=== PATIENT | male | born 1930 | race African-American/Black ===

== ENCOUNTER 2017-02-09 22:29 | Inpatient (IN) | payer MEDICARE, OTHER ==
[~2017-02-09] VITALS: Ht 170.2 cm; Wt 79.8 kg
[2017-02-09] MEDS ORDERED: ONDANSETRON HCL 4MG/2ML VIAL IV STA (23:02)
[2017-02-09] MEDS ORDERED: METHYLPREDNISOLONE SOD SUCC 125 MG/2 ML VIAL IV STA (23:02)
[2017-02-09] MEDS ORDERED: MORPHINE SULFATE 4 MG/ML CPJ (NOT FOR IM USE) IV STA (23:02)
[2017-02-09] MEDS ORDERED: FUROSEMIDE 40MG/4ML VIAL IV STA (23:02)
[2017-02-09] MEDS ORDERED: ASPIRIN 81MG TABLET PO STA (23:02)
[2017-02-09] MEDS ORDERED: PIPERACILLIN/TAZ 3.375G PREMIX 50 ML IV ONE (23:15)
[2017-02-09] MEDS ORDERED: IPRATROPIUM/ALBUTEROL 0.5-3(2.5)MG/3ML NEB HHN ONE (23:15)
[2017-02-09 23:30] LABS: HEMATOCRIT. 29.9 % (42.0-52.0); HEMOGLOBIN. 9.6 g/dL (14.0-18.0); MEAN CORPUSCULAR HEMOGLOBIN 26.2 pg (28.0-32.0); MEAN CORPUSCULAR VOLUME 81.3 fL (80.0-94.0); MEAN PLATELET VOLUME 9.6 fl (7.4-10.4); PLATELET 200 x1000/uL (130-400); RED BLOOD CELL COUNT 3.68 mill/uL (4.7-6.1); RED CELL DISTRIBUTION WIDTH 17.2 % (11.6-14.6)
[2017-02-09 23:31] LABS: INR 1.4; PARTIAL THROMBOPLASTIN TIME 29.4 sec (24.0-34.0); PROTHROMBIN TIME 15.1 sec
[2017-02-09 23:34] LABS: BG BASE EXCESS -2.7 mmol/L (-2.0-2.0); BG CARBOXYHEMOGLOBIN 0.3 % (0.5-1.5); BG DEOXYHEMOGLOBIN 2.1 % (0.0-5.0); BG FRACTION INSPIRED OXYGEN 28; BG HCO3 ACT 20.6 mmol/L (22.0-26.0); BG METHEMOGLOBIN 0.2 % (0.0-1.5); BG OXYGEN SATURATION 97.9 % (92.0-98.5); BG OXYHEMOGLOBIN 97.4 % (94.0-97.0); BG PCO2 30.8 mmHg (35.0-45.0); BG PH 7.444 (7.350-7.450); BG PO2 112.8 mmHg (75.0-100.0); BG SAMPLE SITE RIGHT RADIAL; BG TOTAL HEMOGLOBIN 10.2 g/dL (12.0-18.0); BG VENT MODE NASAL CANNULA
[2017-02-09 23:40] LABS: CARBON DIOXIDE 24 mEq/L (21-32); CHLORIDE 104 mEq/L (98-107); CREATINE KINASE 43 IU/L (39-308); TROPONIN I 0.02 ng/mL (0.00-0.04)
[2017-02-10] VITALS (10 sets, daily range): BP systolic 96–123; BP diastolic 49–79
[2017-02-10] MEDS ORDERED: SODIUM POLYSTYRENE SULFONATE 15 G/60 ML BOT PO ONE (00:15)
[2017-02-10] MEDS ORDERED: SODIUM BICARBONATE 8.4% 1 MEQ/ML 50ML SYR IV ONE (00:15)
[2017-02-10] MEDS ORDERED: CALCIUM CHLORIDE 1GM/10ML SYR IV ONE (00:15)
[2017-02-10 03:25] LABS: PLATELET ESTIMATE NORMAL
[2017-02-10] MEDS ORDERED: ATOR20TA65 PO (08:16)
[2017-02-10] MEDS ORDERED: ASPI-1035 PO (08:16)
[2017-02-10] MEDS ORDERED: PROM6.25 PO (08:24)
[2017-02-10] MEDS ORDERED: CARV3.1242 PO (08:24)
[2017-02-10] MEDS ORDERED: FAMO40TA7 PO (08:24)
[2017-02-10] MEDS ORDERED: FURO40TA5 PO (08:24)
[2017-02-10] MEDS ORDERED: DOCU-150 PO (08:24)
[2017-02-10] MEDS ORDERED: ACET-3161 PO (08:24)
[2017-02-10] MEDS ORDERED: DEXTROSE 50% WATER 50ML SYRINGE IV PRN (08:30)
[2017-02-10] MEDS ORDERED: ASPIRIN 81MG TABLET PO SCH (08:30)
[2017-02-10] MEDS: DOCUSATE SODIUM 250MG CAPSULE PO SCH ×2 (08:58→20:27)
[2017-02-10] MEDS: FUROSEMIDE 40MG/4ML VIAL IVP SCH (08:59)
[2017-02-10] MEDS: CARVEDILOL 3.125 MG TABLET PO SCH ×3 (09:00→17:53)
[2017-02-10] MEDS ORDERED: CEFTRIAXONE 1 G PREMIX 50 ML IV SCH (10:00)
[2017-02-10 10:56] LABS: BASOPHILS % 0.7 % (0.0-2.0); EOSINOPHILS % 0.1 % (0.0-5.0); HEMATOCRIT. 28.8 % (42.0-52.0); HEMOGLOBIN. 9.4 g/dL (14.0-18.0); LYMPHOCYTES % 14.2 % (20.0-50.0); MEAN CORPUSCULAR HEMOGLOBIN 26.4 pg (28.0-32.0); MEAN CORPUSCULAR VOLUME 81.1 fL (80.0-94.0); MEAN PLATELET VOLUME 9.7 fl (7.4-10.4); MONOCYTES % 0.7 % (2.0-8.0); NEUTROPHILS % 84.3 % (40.0-76.0); PLATELET 190 x1000/uL (130-400); RED BLOOD CELL COUNT 3.55 mill/uL (4.7-6.1); RED CELL DISTRIBUTION WIDTH 17.2 % (11.6-14.6)
[2017-02-10] MEDS ORDERED: PNEUMOCOCCAL 23-VAL P-SAC VAC 0.5 ML IM ONE (11:00)
[2017-02-10] MEDS: BLOOD SUGAR DIAGNOSTIC STRIP TEST SCH ×3 (11:19→20:27)
[2017-02-10] MEDS: BUDESONIDE 0.5MG/2ML NEB HHN SCH (12:12)
[2017-02-10] MEDS: IPRATROPIUM/ALBUTEROL 0.5-3(2.5)MG/3ML NEB HHN SCH ×2 (12:22→19:43)
[2017-02-10] MEDS: INSULIN LISPRO 100 UNITS/ML SUBCUT SCH ×3 (12:38→20:28)
[2017-02-10] MEDS ORDERED: DIGOXIN 500MCG/2ML AMP IV NR (18:30)
[2017-02-10] MEDS ORDERED: FUROSEMIDE 40MG/4ML VIAL IVP NR (18:30)
[2017-02-10] MEDS: ENOXAPARIN 30MG/0.3ML SYR SUBCUT SCH (18:43)
[2017-02-10] MEDS: METHYLPREDNISOLONE SOD SUCC 40 MG/ML VIAL IV SCH (18:43)
[2017-02-10] MEDS ORDERED: LEVOFLOXACIN 500MG PREMIX 100 ML IV NR (20:00)
[2017-02-10] MEDS: FAMOTIDINE 20MG TABLET PO SCH (20:27)
[2017-02-10] MEDS: ATORVASTATIN CALCIUM 20MG TABLET PO SCH (20:27)
[2017-02-11] VITALS (12 sets, daily range): BP systolic 98–115; BP diastolic 59–72
[2017-02-11] MEDS ORDERED: LORAZEPAM 2MG/ML CPJ IV NR (00:15)
[2017-02-11] MEDS: BUDESONIDE 0.5MG/2ML NEB HHN SCH ×3 (01:13→20:19)
[2017-02-11] MEDS: IPRATROPIUM/ALBUTEROL 0.5-3(2.5)MG/3ML NEB HHN SCH ×4 (01:16→20:19)
[2017-02-11 05:48] LABS: HEMOGLOBIN. 8.5 g/dL (14.0-18.0); LYMPHOCYTES % 9.6 % (20.0-50.0); MEAN CORPUSCULAR HEMOGLOBIN 26.2 pg (28.0-32.0); MEAN CORPUSCULAR VOLUME 80.6 fL (80.0-94.0); MEAN PLATELET VOLUME 9.5 fl (7.4-10.4); MONOCYTES % 4.3 % (2.0-8.0); NEUTROPHILS % 86.1 % (40.0-76.0); PLATELET 189 x1000/uL (130-400); RED BLOOD CELL COUNT 3.23 mill/uL (4.7-6.1); RED CELL DISTRIBUTION WIDTH 16.9 % (11.6-14.6)
[2017-02-11 05:55] LABS: CARBON DIOXIDE 26 mEq/L (21-32); CHLORIDE 99 mEq/L (98-107); LDL CHOLESTEROL 48 mg/dL (5-100)
[2017-02-11 05:59] LABS: HDL CHOLESTEROL 52 mg/dL (40-59); TROPONIN I 0.02 ng/mL (0.00-0.04)
[2017-02-11] MEDS: METHYLPREDNISOLONE SOD SUCC 40 MG/ML VIAL IV SCH ×2 (06:42→17:31)
[2017-02-11] MEDS: BLOOD SUGAR DIAGNOSTIC STRIP TEST SCH ×4 (06:42→20:47)
[2017-02-11] MEDS: INSULIN LISPRO 100 UNITS/ML SUBCUT SCH ×4 (06:54→21:29)
[2017-02-11] MEDS: DOCUSATE SODIUM 250MG CAPSULE PO SCH ×2 (07:49→20:47)
[2017-02-11] MEDS: ENOXAPARIN 30MG/0.3ML SYR SUBCUT SCH (07:49)
[2017-02-11] MEDS: FUROSEMIDE 40MG/4ML VIAL IVP SCH (07:50)
[2017-02-11] MEDS: CARVEDILOL 3.125 MG TABLET PO SCH ×2 (08:50→20:47)
[2017-02-11] MEDS: LEVOFLOXACIN 250MG PREMIX 50 ML IV SCH (16:56)
[2017-02-11] MEDS: FAMOTIDINE 20MG TABLET PO SCH (20:47)
[2017-02-11] MEDS: ATORVASTATIN CALCIUM 20MG TABLET PO SCH (20:47)
[2017-02-12] VITALS (13 sets, daily range): BP systolic 93–119; BP diastolic 54–85
[2017-02-12] MEDS: IPRATROPIUM/ALBUTEROL 0.5-3(2.5)MG/3ML NEB HHN SCH ×4 (00:35→21:19)
[2017-02-12] MEDS: METHYLPREDNISOLONE SOD SUCC 40 MG/ML VIAL IV SCH ×2 (05:57→17:46)
[2017-02-12] MEDS: BLOOD SUGAR DIAGNOSTIC STRIP TEST SCH ×4 (05:57→20:57)
[2017-02-12 06:35] LABS: HEMATOCRIT. 26.8 % (42.0-52.0); HEMOGLOBIN. 8.7 g/dL (14.0-18.0); MEAN CORPUSCULAR HEMOGLOBIN 26.5 pg (28.0-32.0); MEAN CORPUSCULAR VOLUME 81.2 fL (80.0-94.0); MEAN PLATELET VOLUME 9.6 fl (7.4-10.4); PLATELET 186 x1000/uL (130-400); RED CELL DISTRIBUTION WIDTH 16.8 % (11.6-14.6)
[2017-02-12] MEDS: INSULIN LISPRO 100 UNITS/ML SUBCUT SCH ×4 (06:50→20:55)
[2017-02-12] MEDS: BUDESONIDE 0.5MG/2ML NEB HHN SCH ×2 (08:23→21:19)
[2017-02-12] MEDS: FUROSEMIDE 40MG/4ML VIAL IVP SCH (08:42)
[2017-02-12] MEDS: DOCUSATE SODIUM 250MG CAPSULE PO SCH ×2 (08:42→20:56)
[2017-02-12] MEDS: CARVEDILOL 3.125 MG TABLET PO SCH ×2 (08:42→20:57)
[2017-02-12] MEDS: ENOXAPARIN 30MG/0.3ML SYR SUBCUT SCH (08:43)
[2017-02-12 14:17] LABS: PLATELET ESTIMATE NORMAL
[2017-02-12] MEDS: LEVOFLOXACIN 250MG PREMIX 50 ML IV SCH (17:46)
[2017-02-12] MEDS: ATORVASTATIN CALCIUM 20MG TABLET PO SCH (20:56)
[2017-02-12] MEDS: FAMOTIDINE 20MG TABLET PO SCH (20:56)
[2017-02-13] VITALS (7 sets, daily range): BP systolic 100–124; BP diastolic 65–78
[2017-02-13] MEDS: IPRATROPIUM/ALBUTEROL 0.5-3(2.5)MG/3ML NEB HHN SCH ×2 (03:28→08:49)
[2017-02-13] MEDS: METHYLPREDNISOLONE SOD SUCC 40 MG/ML VIAL IV SCH (06:15)
[2017-02-13] MEDS: BLOOD SUGAR DIAGNOSTIC STRIP TEST SCH (06:15)
[2017-02-13] MEDS: INSULIN LISPRO 100 UNITS/ML SUBCUT SCH (06:50)
[2017-02-13] MEDS: FUROSEMIDE 40MG/4ML VIAL IVP SCH (08:22)
[2017-02-13] MEDS: CARVEDILOL 3.125 MG TABLET PO SCH (08:22)
[2017-02-13] MEDS: DOCUSATE SODIUM 250MG CAPSULE PO SCH (08:22)
[2017-02-13] MEDS: ENOXAPARIN 30MG/0.3ML SYR SUBCUT SCH (08:23)
[2017-02-13] MEDS: BUDESONIDE 0.5MG/2ML NEB HHN SCH (08:49)
== END 2017-02-13 10:20 | disposition home or self-care (01) | DRG 291 ==
LOC: ER 22:29 → 3WST 02-10 01:10
PROVIDERS: ADMIT Internal Medicine; ATTEND Internal Medicine
DX: I13.0 Hypertensive heart and chronic kidney disease with heart failure and stage 1 through stage 4 chronic kidney disease, or unspecified chronic kidney disease (principal); J96.00 Acute respiratory failure, unspecified whether with hypoxia or hypercapnia; I50.23 Acute on chronic systolic (congestive) heart failure; J44.1 Chronic obstructive pulmonary disease with (acute) exacerbation; E87.4 Mixed disorder of acid-base balance; N18.9 Chronic kidney disease, unspecified; E87.5 Hyperkalemia; E11.22 Type 2 diabetes mellitus with diabetic chronic kidney disease; D64.9 Anemia, unspecified; E78.5 Hyperlipidemia, unspecified; F03.90 Unspecified dementia, unspecified severity, without behavioral disturbance, psychotic disturbance, mood disturbance, and anxiety; H40.9 Unspecified glaucoma; M19.90 Unspecified osteoarthritis, unspecified site; M62.50 Muscle wasting and atrophy, not elsewhere classified, unspecified site; I48.91 Unspecified atrial fibrillation; Z82.49 Family history of ischemic heart disease and other diseases of the circulatory system; Z99.81 Dependence on supplemental oxygen; Z85.72 Personal history of non-Hodgkin lymphomas; Z87.891 Personal history of nicotine dependence; Z95.0 Presence of cardiac pacemaker; Z98.1 Arthrodesis status; Z79.82 Long term (current) use of aspirin; Z79.899 Other long term (current) drug therapy
CPT/HCPCS: 36415; 36600; 71010; 74176; 80048; 80053; 80061; 82375; 82550; 82805; 82962; 83605; 83690; 83735; 83880; 84132; 84443; 84484; 85025; 85610; 85730; 87040; 90732; 93005; 93970; 94640; 96365; 96375; 99285; A6261; J0696; J1160; J1650; J1815; J1940; J1956; J2060; J2543; J2920; J2930; J3490; J7050; J7620; J7626; A4315

== ENCOUNTER 2017-03-05 09:48 | Inpatient (IN) | payer MEDICARE ==
[~2017-03-05] VITALS: Ht 175.3 cm; Wt 76.9 kg
[~2017-03-05 09:48] MED LIST: ACET-3161 PO; ASPI-1159 PO; ATOR20TA65 PO; CARV3.1242 PO; DOCU-150 PO; FAMO40TA7 PO; FURO40TA5 PO; PROM6.25 PO
[2017-03-05] MEDS ORDERED: SODIUM CHLORIDE 0.9% 1,000 ML IV ONE (10:04)
[2017-03-05 10:39] LABS: HEMATOCRIT. 32.2 % (42.0-52.0); HEMOGLOBIN. 10.4 g/dL (14.0-18.0); MEAN CORPUSCULAR HEMOGLOBIN 26.7 pg (28.0-32.0); MEAN CORPUSCULAR VOLUME 82.7 fL (80.0-94.0); MEAN PLATELET VOLUME 9.3 fl (7.4-10.4); PLATELET 128 x1000/uL (130-400); RED CELL DISTRIBUTION WIDTH 17.5 % (11.6-14.6)
[2017-03-05 10:46] LABS: CLARITY URINE CLEAR (CLEAR); COLOR URINE YELLOW (YELLOW); GLUCOSE URINE NEGATIVE (NEGATIVE); KETONES URINE NEGATIVE (NEGATIVE); LEUKOCYTE ESTERASE URINE NEGATIVE (NEGATIVE); NITRITE URINE NEGATIVE (NEGATIVE); OCCULT BLOOD URINE TRACE (NEGATIVE); PROTEIN URINE 2+ (NEGATIVE); SPECIFIC GRAVITY URINE 1.013 (1.005-1.030); UROBILINOGEN URINE 0.2 E.U./dL (0.2-1.0)
[2017-03-05 10:46] LABS: CHLORIDE 103 mEq/L (98-107)
[2017-03-05 10:47] LABS: INR 1.2; PROTHROMBIN TIME 12.7 sec
[2017-03-05 10:59] LABS: CARBON DIOXIDE 30 mEq/L (21-32); TROPONIN I 0.04 ng/mL (0.00-0.04)
[2017-03-05 11:18] LABS: PLATELET ESTIMATE NORMAL
[2017-03-05 14:40] VITALS: BP 105/75
[2017-03-05 15:00] VITALS: BP 105/75
[2017-03-05] MEDS: BLOOD SUGAR DIAGNOSTIC STRIP TEST SCH ×2 (16:27→20:25)
[2017-03-05] MEDS ORDERED: DEXTROSE 50% WATER 50ML SYRINGE IV PRN (16:30)
[2017-03-05] MEDS ORDERED: HYDROCODONE/ACETAMINOPHEN 5/325MG TABLET PO PRN (16:30)
[2017-03-05] MEDS ORDERED: ACETAMINOPHEN 325MG TABLET PO PRN (16:30)
[2017-03-05] MEDS ORDERED: ACETAMINOPHEN WITH CODEINE 300/30MG TABLET PO SCH (17:00)
[2017-03-05] MEDS ORDERED: IPRATROPIUM/ALBUTEROL 0.5-3(2.5)MG/3ML NEB HHN PRN (18:45)
[2017-03-05 20:00] VITALS: BP 102/68
[2017-03-06] VITALS (7 sets, daily range): BP systolic 107–138; BP diastolic 67–106
[2017-03-06] MEDS: BLOOD SUGAR DIAGNOSTIC STRIP TEST SCH ×4 (05:52→21:00)
[2017-03-06] MEDS: ATORVASTATIN CALCIUM 20MG TABLET PO SCH (08:41)
[2017-03-06] MEDS: CARVEDILOL 3.125 MG TABLET PO SCH (08:41)
[2017-03-06] MEDS: FAMOTIDINE 20MG TABLET PO SCH (08:41)
[2017-03-06] MEDS: ASPIRIN 81MG EC TABLET PO SCH (08:42)
[2017-03-06] MEDS: DOCUSATE SODIUM 100MG CAPSULE PO SCH (08:42)
[2017-03-06] MEDS ORDERED: FUROSEMIDE 40MG TABLET PO SCH (09:00)
[2017-03-06] MEDS: METHYLPREDNISOLONE SOD SUCC 40 MG/ML VIAL IV SCH ×2 (15:53→21:08)
[2017-03-06 16:01] LABS: BG BASE EXCESS 1.5 mmol/L (-2.0-2.0); BG CARBOXYHEMOGLOBIN 0.2 % (0.5-1.5); BG DEOXYHEMOGLOBIN 6.9 % (0.0-5.0); BG FRACTION INSPIRED OXYGEN 28; BG HCO3 ACT 26.3 mmol/L (22.0-26.0); BG METHEMOGLOBIN 0.5 % (0.0-1.5); BG OXYGEN SATURATION 93.1 % (92.0-98.5); BG OXYHEMOGLOBIN 92.4 % (94.0-97.0); BG PH 7.414 (7.350-7.450); BG PO2 69.5 mmHg (75.0-100.0); BG SAMPLE SITE RIGHT BRACHIAL; BG TOTAL HEMOGLOBIN 10.9 g/dL (12.0-18.0); BG VENT MODE NASAL CANNULA
[2017-03-06] MEDS: ENOXAPARIN 40MG/0.4ML SYR SUBCUT SCH (16:38)
[2017-03-06] MEDS ORDERED: CLONIDINE 0.1MG TABLET PO PRN (17:15)
[2017-03-06] MEDS ORDERED: FUROSEMIDE 40MG/4ML VIAL IVP ONE (21:30)
[2017-03-06] MEDS ORDERED: FUROSEMIDE 40MG/4ML VIAL IV NR (22:00)
[2017-03-06] MEDS: FUROSEMIDE 40MG/4ML VIAL IV SCH (22:49)
[2017-03-07 04:22] VITALS: BP 98/69
[2017-03-07 06:39] LABS: HEMOGLOBIN. 10.3 g/dL (14.0-18.0); MEAN CORPUSCULAR HEMOGLOBIN 27.3 pg (28.0-32.0); MEAN CORPUSCULAR VOLUME 82.5 fL (80.0-94.0); RED BLOOD CELL COUNT 3.75 mill/uL (4.7-6.1); RED CELL DISTRIBUTION WIDTH 17.7 % (11.6-14.6)
[2017-03-07 08:00] VITALS: BP 95/72
[2017-03-07] MEDS: BLOOD SUGAR DIAGNOSTIC STRIP TEST SCH ×4 (08:30→21:17)
[2017-03-07 08:36] LABS: PLATELET ESTIMATE NORMAL
[2017-03-07 08:37] LABS: MEAN PLATELET VOLUME 10.2 fl (7.4-10.4); PLATELET 156 x1000/uL (130-400)
[2017-03-07] MEDS: CARVEDILOL 3.125 MG TABLET PO SCH (09:00)
[2017-03-07] MEDS ORDERED: FUROSEMIDE 40MG TABLET PO SCH (09:00)
[2017-03-07] MEDS: METHYLPREDNISOLONE SOD SUCC 40 MG/ML VIAL IV SCH ×2 (09:21→21:26)
[2017-03-07] MEDS: FUROSEMIDE 40MG/4ML VIAL IV SCH ×2 (09:21→18:36)
[2017-03-07] MEDS: ATORVASTATIN CALCIUM 20MG TABLET PO SCH (09:22)
[2017-03-07] MEDS: DOCUSATE SODIUM 100MG CAPSULE PO SCH (09:22)
[2017-03-07] MEDS: FAMOTIDINE 20MG TABLET PO SCH (09:22)
[2017-03-07] MEDS: ENOXAPARIN 40MG/0.4ML SYR SUBCUT SCH (09:22)
[2017-03-07] MEDS: ASPIRIN 81MG EC TABLET PO SCH (09:22)
[2017-03-07 09:29] LABS: CHLORIDE 100 mEq/L (98-107)
[2017-03-07 09:35] LABS: CARBON DIOXIDE 27 mEq/L (21-32)
[2017-03-07 13:30] VITALS: BP 103/77
[2017-03-07 16:00] VITALS: BP 110/89
[2017-03-07] MEDS ORDERED: DEXTROSE 50% WATER 50ML SYRINGE IV PRN (19:15)
[2017-03-07] MEDS: INSULIN LISPRO 100 UNITS/ML SUBCUT SCH ×2 (19:23→21:32)
[2017-03-07 20:00] VITALS: BP 111/78
[2017-03-08] VITALS: BP 108/73
[2017-03-08 04:00] VITALS: BP 113/80
[2017-03-08] MEDS: FUROSEMIDE 40MG/4ML VIAL IV SCH (06:33)
[2017-03-08] MEDS: BLOOD SUGAR DIAGNOSTIC STRIP TEST SCH ×2 (06:40→12:16)
[2017-03-08] MEDS: INSULIN LISPRO 100 UNITS/ML SUBCUT SCH (06:44)
[2017-03-08 08:41] VITALS: BP 98/67
[2017-03-08 08:53] VITALS: BP 98/67
[2017-03-08] MEDS: CARVEDILOL 3.125 MG TABLET PO SCH (09:00)
[2017-03-08] MEDS: METHYLPREDNISOLONE SOD SUCC 40 MG/ML VIAL IV SCH (09:49)
[2017-03-08] MEDS: ENOXAPARIN 40MG/0.4ML SYR SUBCUT SCH (09:49)
[2017-03-08] MEDS: DOCUSATE SODIUM 100MG CAPSULE PO SCH (09:50)
[2017-03-08] MEDS: FAMOTIDINE 20MG TABLET PO SCH (09:50)
[2017-03-08] MEDS: ASPIRIN 81MG EC TABLET PO SCH (09:50)
[2017-03-08] MEDS: ATORVASTATIN CALCIUM 20MG TABLET PO SCH (09:50)
[2017-03-08] MEDS ORDERED: METF500T4 PO (12:14)
== END 2017-03-08 12:28 | disposition home or self-care (01) | DRG 291 ==
LOC: ER 09:53 → OBSVTOIN 12:20 → 5WST 12:20 → INTOOBSV 12:20 → EDBEDREQ 12:36 → ENRESERV 13:48
PROVIDERS: ADMIT Internal Medicine; ATTEND Internal Medicine
DX: I13.0 Hypertensive heart and chronic kidney disease with heart failure and stage 1 through stage 4 chronic kidney disease, or unspecified chronic kidney disease (principal); I50.23 Acute on chronic systolic (congestive) heart failure; G93.40 Encephalopathy, unspecified; J84.9 Interstitial pulmonary disease, unspecified; J44.1 Chronic obstructive pulmonary disease with (acute) exacerbation; E11.22 Type 2 diabetes mellitus with diabetic chronic kidney disease; N18.9 Chronic kidney disease, unspecified; I25.10 Atherosclerotic heart disease of native coronary artery without angina pectoris; F03.90 Unspecified dementia, unspecified severity, without behavioral disturbance, psychotic disturbance, mood disturbance, and anxiety; E78.5 Hyperlipidemia, unspecified; E11.649 Type 2 diabetes mellitus with hypoglycemia without coma; D64.9 Anemia, unspecified; Z99.81 Dependence on supplemental oxygen; Z95.0 Presence of cardiac pacemaker; Z87.891 Personal history of nicotine dependence; Z85.72 Personal history of non-Hodgkin lymphomas; Z82.49 Family history of ischemic heart disease and other diseases of the circulatory system
CPT/HCPCS: 36415; 36600; 70450; 71010; 80048; 80053; 81001; 82375; 82805; 82962; 83605; 83880; 84484; 85025; 85610; 87040; 87086; 93005; 94664; 97116; 97162; 97530; 99285; A6261; G0378; J1650; J1815; J1940; J2920; J7030; J7620

== ENCOUNTER 2017-05-12 11:10 | Emergency (ER) | payer MEDICARE ==
[~2017-05-12] VITALS: Ht 177.8 cm; Wt 66.6 kg
[~2017-05-12 11:10] MED LIST changes: +METF500T4 PO
[2017-05-12 16:48] VITALS: BP 110/80
== END 2017-05-12 16:59 | disposition home or self-care (01) ==
LOC: ER 11:33
DX: Z46.82 Encounter for fitting and adjustment of non-vascular catheter (principal); J44.9 Chronic obstructive pulmonary disease, unspecified; F03.90 Unspecified dementia, unspecified severity, without behavioral disturbance, psychotic disturbance, mood disturbance, and anxiety; K21.9 Gastro-esophageal reflux disease without esophagitis; I50.9 Heart failure, unspecified; E11.9 Type 2 diabetes mellitus without complications; Z95.0 Presence of cardiac pacemaker
CPT/HCPCS: 99283